=== PATIENT | male | born 1935 | race Caucasian/White ===

== ENCOUNTER 2017-06-07 12:06 | Outpatient (CLI) | payer MEDICARE, BC ==
--- NOTE | 2017-06-08 10:07 | PET ---
PET CT: HISTORY: An 81-year-old male with [id number] lung cancer. Exam requested for restaging. The patient also has a history of prostate cancer in 2016. The patient is status post chemoradiation therapy. TECHNIQUE: PET scanning with CT attenuation correction is performed from the base of the brain through the proxi mal thighs following the intravenous administration of 11 mCi [id number] in the right ant ecubital fossa. COMPARISON: PET CT dated 11/02/16. FINDINGS: The previously noted abnormal areas of FDG localization in the bones, left lung, and lymph nodes have resolved in the interim. No nely hypermetabolism is seen in the neck, chest, abdomen, or pelvis. No hypermetabolic pulmonary nodules, liver, adrenal, or skeletal lesions are identified. There is physiologic activity in the GI and tracts and the visualized portions of the brain. The CT scan used for attenuation correction demonstrates no evidence of pleural effusions or ascites. IMPRESSION: Excellent response to therapy with interval resolution of hypermetabolic lesions since 11/02/16. POS: [facility]
== END 2017-06-07 12:07 | disposition home or self-care (01) ==
LOC: PET 12:06
PROVIDERS: ATTEND Internal Medicine Hematology & Oncology
DX: C34.92 Malignant neoplasm of unspecified part of left bronchus or lung (principal)
CPT/HCPCS: 78815; A9552